=== PATIENT | male | born 1975 | race Hispanic/Latino ===

== ENCOUNTER 2025-03-27 10:48 | Day surgery (SDC) | payer OTHER, SELFPAY ==
[2025-03-24 09:57] LABS: Anion Gap 7.1 mEq/L (5.0-15.0); BUN Blood Urea Nitrogen 28.0 mg/dL (7-18); Glucose Level 161.0 mg/dL (74-106); Potassium 4.1 mEq/L (3.5-5.1)
[2025-03-27] MEDS: NA CHLORIDE 0.9% 1,000 ML ONE (11:00)
[2025-03-27] MEDS ORDERED: COLLAGENASE 30 GM OINTMENT TOP ONE (11:17)
[2025-03-27] MEDS ORDERED: FENTANYL CITR 100 MCG/2 ML ONE (11:39)
[2025-03-27] MEDS ORDERED: ONDANSETRON 4 MG/2 ML VIAL ONE (11:39)
[2025-03-27] MEDS ORDERED: MIDAZOLAM HCL 2 MG/2 ML INJ ONE (11:39)
[2025-03-27] MEDS ORDERED: LIDOCAINE 2% MPF 5 ML VIAL ONE (11:39)
[2025-03-27] MEDS ORDERED: EPHEDRINE SULF 50 MG/ML VIAL ONE (12:55)
[2025-03-27] MEDS: CEFAZOLIN SODIUM 2 GM/VIAL ONE (12:56)
[2025-03-27] MEDS: LIDOCAINE HCL/EPINEPHRINE 20 ML MDV ONE (13:11)
--- NOTE | 2025-03-27 13:29 | P.OP ---
Preoperative diagnosis: LEFT Foot Necrotic Wound Postoperative diagnosis: LEFT Foot Necrotic Wound Primary procedure: Debridement of LEFT Foot Necrotic Wound Anesthesia: GETA Estimated blood loss: <5cc Specimen: Debridement Tissue Findings: Necrosis of Skin, full thickness - complex pattern Complications: None Transferred to: Recovery Room Condition: Good
[2025-03-27 13:49] VITALS: TEMP 97.1; O2SAT 100
[2025-03-27 14:30] VITALS: BP 116/65
--- NOTE | 2025-03-27 14:39 | OP ---
Date of Procedure: 03/27/2025 Surgeon: Roney Rosenthal MD, Preoperative Diagnosis: Left foot necrotic wounds. Postoperative Diagnosis: Left foot necrotic wounds. Procedure Performed: Debridement of left foot necrotic wounds. Anesthesia: General endotracheal. Estimated Blood Loss: Less than 5 cc. Specimens: Debridement of tissue. Findings: Necrosis of skin, full-thickness, with a complex pattern. Complications: None. Disposition: The patient transferred to recovery room in good condition. Procedure In Detail: After informed consent was obtained, patient was brought to the operating room, prepped and draped in the usual sterile fashion. After adequate anesthesia had been achieved, I be javier by removing all nonviable black, dark full-thickness dry necrotic skin. Approximately 30 sq cm w as removed down to subcutaneous fat in these areas. Ultimately, I debrided all nonviable tissue. I used pulse lavage after this was completed. Hemostasis was achieved with minimal electrocautery. Th e area was pulse lavaged once again. No additional hemostasis measures were required. All good viab le tissue was left behind. At this point, I packed the wound with Xeroform over tendinous connection s and sterile dressing was placed over top. The patient tolerated the procedure without incident or complication, was transferred to PACU in good condition. All counts were correct at the end of the case. GREGORIO/LISA Voice ID: [id number] Report ID: [id number]
== END 2025-03-27 14:53 | disposition home or self-care (01) ==
LOC: OR 10:48
PROVIDERS: ATTEND Surgery
PROC: 0JBR0ZZ Excision of Left Foot Subcutaneous Tissue and Fascia, Open Approach (ICD-10-PCS; principal; 2025-03-27 13:00)
DX: L97.523 Non-pressure chronic ulcer of other part of left foot with necrosis of muscle (principal); I96 Gangrene, not elsewhere classified
CPT/HCPCS: 93005; 80048; 36415; 82947 ×2; 88304; 11042; 11045; J2704; J1100; J2003; J2250; J3010; J2405; J7030; J3590